=== PATIENT | male | born 1975 | race Caucasian/White ===

== ENCOUNTER 2019-12-12 14:06 | Emergency (ER) | payer SELFPAY ==
[2019-12-12] VITALS (7 sets, daily range): BP systolic 128–135; BP diastolic 74–86; PULSE 52–74; RESP 16–18; TEMP 35.6; O2SAT 92–98; BMI 32.1
--- NOTE | 2019-12-12 14:20 | ED_ITS ---
Documented by User: Tono Pattersno DO 12/12/19 16:14 HPI - Burn/Smoke Inhalation General: Chief complaint: Burn/Smoke Inhalation Stated complaint: electric burn Time Seen by Provider: 12/12/19 14:11 History of Present Illness: HPI Narrative: 44-year-old male was working on a boat putting a battery and had evidently contact and completed the circuit on his ring on his left fourth finger. The ring became extremely hot even had a red hot appearance to it he broke contact and remove the ring he is some sloughing of skin and blister formation underlying. He denies any other injuries he has some whitish cereal on the right nostril that is fiberglass dust he been standing his boat. He has no nostril hair singeing. MD Complaint: burn Onset (ago): minute(s) Type of Exposure: electrical Smoke Inhalation: none Place: home Location - Extremities: Left: hand Associated symptoms: Deny chest pain, fever(s), nausea or vomiting Review of Systems Const: Denies: fever(s), chills, body aches, fatigue, malaise or night sweats Eyes: Denies: change in vision or blurry vision ENMT: Denies: throat pain, oral sores, dental pain, nasal discharge or nasal congestion Card: Denies: chest pain, palpitations, irregular heart rhythm, edema, syncope, dyspnea on exertion, orthopnea or leg pain with exertion Resp: Denies: dyspnea, productive cough, non-productive cough or wheezing GI: Denies: abdominal pain, nausea, vomiting, hematemesis, coffee ground emesis, dysphagia, heartburn, diarrhea, constipation, GI cramping, hematochezia or melena : Denies: flank pain, difficulty urinating, dysuria, urinary frequency, urinary urgency, urinary incontinence or hematuria Physical Exam Const: COMMON NORMALS: no acute distress GENERAL APPEARANCE: cooperative and comfortable ORIENTATION/CONSCIOUSNESS: Yes awake, Yes oriented to person, Yes oriented to place and Yes oriented to time HENMT: COMMON NORMALS: normocephalic, atraumatic and hearing grossly normal bilaterally HEAD & SCALP: normocephalic and atraumatic Eye: COMMON NORMALS: Equal, round and reactive pupils present, EOMs intact bilaterally, conjunctivae normal and no scleral icterus CONJUNCTIVA: Yes conjunctivae normal PUPIL: Yes Equal, round and reactive pupils present Neck/C-Spine: COMMON NORMALS: no JVD Resp: COMMON NORMALS: normal respiratory effort, No retractions, No use of accessory muscles and clear to auscultation bilaterally AUSCULTATION: clear to auscultation bilaterally Cardio: COMMON NORMALS: no JVD, regular rate, regular rhythm and No murmurs present (Cardio) RATE: regular rate RHYTHM: regular rhythm Extremity: COMMON NORMALS: normal to inspection, capillary refill normal, no clubbing, cyanosis or edema, no calf tenderness and no pedal edema Neuro: SENSORIUM/ORIENTATION: Yes oriented to person, Yes oriented to place and Yes oriented to time Skin: NARRATIVE SKIN EXAM: Second-degree burn circumferential on the left fourth finger consistent with C pattern of the ring. There is some sloughing of blisters no full blisters at this point is not full-thickness. Course Vital Signs: Vital signs: Vital Signs Temperature 96.0 F L 12/12/19 14:08 Pulse Rate 58 L 12/12/19 15:50 Respiratory Rate 18 12/12/19 15:50 Blood Pressure 128/74 12/12/19 15:50 Pulse Oximetry 94 12/12/19 15:50 MDM - Burn/Smoke Inhalation MDM Narrative: Medical decision making narrative: Charge home with pain medication topical mupirocin to follow-up with the wound clinic tomorrow as any problems return. Keep the hand elevated while off work until released. Discharge Plan Discharge Patient Disposition: Home Clinical Impression: Electrical burn, Second degree burn of finger of left hand Condition: Stable Prescriptions: New hydrocodone-acetaminophen 5-325 mg tablet 1 tab PO Q6H PRN (Reason: pain) Qty: 20 RF: 0 mupirocin 2 % ointment 1 applic TOPICAL BID Qty: 22 RF: 0 No Action glipizide 5 mg tablet extended release 24hr 5 mg PO BID RF: 0 amlodipine 5 mg tablet 5 mg PO DAILY RF: 0 metformin 1,000 mg tablet 1,000 mg PO BID RF: 0 losartan 25 mg tablet 25 mg PO DAILY RF: 0 gabapentin 300 mg capsule See Rx Instructions .ROUTE .COMPLEX RF: 0 pravastatin 20 mg tablet 20 mg PO DAILY RF: 0 sertraline 50 mg tablet 50 mg PO BID RF: 0 Discharge Orders: Discharge Order (Routine); Ordered 12/12/19 Ordered By: Tono Patterson Referrals: Adelaida Elizabeth, CARISSA [Primary Care Provider] - Discharge Diet: Usual diet Discharge Activity: Limit activity as instructed Activity Restrictions/Additional Instructions: Limit use of the left hand. Keep left hand elevated whenever possible. Change dressing twice a day and apply topical ointment. national facilities manager will call to make an arrangement for you to follow-up with wound care. Discharge Date/Time: 12/12/19 15:55 Coding Level of Care Code ED Finisher Machine for Chg Fwd Exam Detailed Documented by User: MARIA ELENA [place] 12/12/19 17:13 HPI - Burn/Smoke Inhalation General: Chief complaint: Burn/Smoke Inhalation Stated complaint: electric burn Time Seen by Provider: 12/12/19 14:11 Course Vital Signs: Vital signs: Vital Signs Temperature 96.0 F L 12/12/19 14:08 Pulse Rate 58 L 12/12/19 15:50 Respiratory Rate 18 12/12/19 15:50 Blood Pressure 128/74 12/12/19 15:50 Pulse Oximetry 94 12/12/19 15:50 Discharge Plan Discharge Patient Disposition: Home Clinical Impression: Electrical burn, Second degree burn of finger of left hand Condition: Stable Prescriptions: New hydrocodone-acetaminophen 5-325 mg tablet 1 tab PO Q6H PRN (Reason: pain) Qty: 20 RF: 0 mupirocin 2 % ointment 1 applic TOPICAL BID Qty: 22 RF: 0 No Action glipizide 5 mg tablet extended release 24hr 5 mg PO BID RF: 0 amlodipine 5 mg tablet 5 mg PO DAILY RF: 0 metformin 1,000 mg tablet 1,000 mg PO BID RF: 0 losartan 25 mg tablet 25 mg PO DAILY RF: 0 gabapentin 300 mg capsule See Rx Instructions .ROUTE .COMPLEX RF: 0 pravastatin 20 mg tablet 20 mg PO DAILY RF: 0 sertraline 50 mg tablet 50 mg PO BID RF: 0 Discharge Orders: Discharge Order (Routine); Ordered 12/12/19 Ordered By: Tono Patterson Referrals: Adelaida Elizabeth, CARISSA [Primary Care Provider] - Discharge Diet: Usual diet Discharge Activity: Limit activity as instructed Activity Restrictions/Additional Instructions: Limit use of the left hand. Keep left hand elevated whenever possible. Change dressing twice a day and apply topical ointment. national facilities manager will call to make an arrangement for you to follow-up with wound care. Discharge Date/Time: 12/12/19 15:55 Coding Level of Care Code ED Finisher Machine for Chg Fwd Exam Detailed
[2019-12-12] MEDS: HYDROmorphone 1 mg/mL INJ 1 mL 0.5 MG IVP ×2 (14:24→15:14)
[2019-12-12] MEDS: ondansetron 2 mg/ML SDV 2 mL 4 MG IVP (14:24)
[2019-12-12] MEDS: mupirocin oint 22 gm 1 APPLIC TOPICAL (15:50)
--- NOTE | 2019-12-13 10:39 | DCPLANNER ---
manager presentation had message to schedule a follow up appointment for patient with Wound Care. manager presentation called Wound Care, spoke with Xochitl, a follow up appointment was scheduled for Friday, December 15, 2019 at 8:00 with Daniela. manager presentation called patient and left a voicemail for patient regarding the appointment information.
--- NOTE | 2019-12-14 13:24 | DCPLANNER ---
Patient called case management specialist and left a message for case management specialist that he followed up with his primary care physician, and does not want the follow up appointment at Wound Care. manager mac called Wound Care and cancelled the appointment.
--- NOTE | 2020-01-26 11:47 | DCPLANNER ---
Patient had an appointment scheduled for 12.15.19 with Wound Care - patient did not want appointment.
== END 2019-12-12 15:55 | disposition home or self-care (01) ==
PROVIDERS: Emergency Provider Family Medicine; PCP Nurse Practitioner Family
DX: T23.222A Burn of second degree of single left finger (nail) except thumb, initial encounter (principal); W86.8XXA Exposure to other electric current, initial encounter; Z79.84 Long term (current) use of oral hypoglycemic drugs
CPT/HCPCS: 12345; 96374; 96375; 96376; 99282; 99284; J1170; J2405

== ENCOUNTER → 2020-07-31 13:14 | Outpatient (BNVA) | payer BC, SELFPAY | PROVIDERS: PCP Nurse Practitioner Family; Visit Provider Podiatrist Foot & Ankle Surgery | DX: M19.072 Primary osteoarthritis, left ankle and foot (principal); M19.071 Primary osteoarthritis, right ankle and foot; M79.671 Pain in right foot; M79.672 Pain in left foot | CPT/HCPCS: 73630 ==

== ENCOUNTER → 2020-11-10 10:35 | Outpatient (BNVA) | payer BC, SELFPAY | PROVIDERS: PCP Nurse Practitioner Family; Visit Provider Emergency Medicine | DX: Z20.822 Contact with and (suspected) exposure to COVID-19 (principal) | CPT/HCPCS: 87635 ==

== ENCOUNTER → 2021-05-10 08:50 | Outpatient (BNVA) | payer BC, SELFPAY | PROVIDERS: PCP Nurse Practitioner Family; Visit Provider Nurse Practitioner Family | DX: Z20.822 Contact with and (suspected) exposure to COVID-19 (principal) | CPT/HCPCS: 87635 ==

== ENCOUNTER → 2022-11-18 11:48 | Outpatient (BNVA) | payer OTHER, SELFPAY | PROVIDERS: Visit Provider Podiatrist Foot & Ankle Surgery | DX: M21.41 Flat foot [pes planus] (acquired), right foot (principal); M21.42 Flat foot [pes planus] (acquired), left foot; M76.821 Posterior tibial tendinitis, right leg; M76.822 Posterior tibial tendinitis, left leg | CPT/HCPCS: 73630 ==

== ENCOUNTER → 2023-05-20 15:29 | Outpatient (BNVA) | payer BC, SELFPAY | PROVIDERS: PCP Internal Medicine Cardiovascular Disease; Visit Provider Podiatrist Foot & Ankle Surgery | DX: M79.671 Pain in right foot (principal); G89.29 Other chronic pain; M76.821 Posterior tibial tendinitis, right leg; M76.822 Posterior tibial tendinitis, left leg; M21.41 Flat foot [pes planus] (acquired), right foot; M21.42 Flat foot [pes planus] (acquired), left foot | CPT/HCPCS: 73630 ==

== ENCOUNTER 2023-05-23 08:25 | Day surgery (SDC) | payer BC, OTHER, SELFPAY ==
--- OUTSIDE RECORDS SUMMARY | 2023-05-20 16:27 | XMS_ITS | Patient Health Record ---
Author Name Unknown Organization [facility] Address [address] [place] [address] Care Team Providers Care Tin Recovery Worker Name Role Phone MOLLY WHEELER Primary Care Provider Unavaila Molly Phan Unavailable [phone] Rohan Monroe Unavailable ALLERGIES Allergen (clinical drug ingredient) Drug/Non Drug Allergy documented on EMR Reaction Allergy Type Onset Date Status morphine Morphine Sulfate Unknown Drug Allergy Active RESULTS Component Value Reference Range Notes CBC w\ Auto Diff [id number] Reviewed date:12/04/2022 01:50:12 PM Interpretation: Performing Lab: Notes/Report: Diagnosis Description: Type 2 diabetes mellitus without complications WBC 5.8 4.5-11.0 X10'3 RBC 5.04 4.50-5.90 X10'6 Hgb 15.0 13.5-17.5 G/DL Hct 45.7 41.0-53.0 % MCV 90.7 80.0-100.0 FL MCH 29.8 27.0-31.0 PG MCHC 32.8 31.0-37.0 G/DL Platelet 184 150-400 X10'3 RDW-SD 43.2 35.0-49.0 FL RDW-CV 12.9 12.2-15.6 % MPV 12.1 9.2-12.0 FL Neutro Auto% 53.3 42.0-75.0 % Lymph Auto% 36.6 21.0-51.0 % [place] Auto% 7.2 1.7-9.3 % Eos Auto% 1.5 .0-6.0 Baso Auto% 0.7 0.0-1.0 Imm Gran% .7 .0-.4 % Neutro Abs 3.11 .80-7.70 Absolute Neutrophil Count 3110 Lymph Abs 2.14 .10-4.10 [place] Abs .42 .20-1.00 Eos Abs .09 .00-.40 Baso Abs .04 .00-.10 Imm Gran Abs .04 .00-.10 NRBC# .00 .00-.20 NRBC% .00 .00-.20 /100 int act WBC's Comprehensive Metabolic Pane l [id number] Reviewed date:12/04/2022 01:50:06 PM Interpretation: Performing Lab: Notes/Report: Diagnosis Description: Type 2 diabetes mellitus without complications Glucose Serum 70 71-110 MG/DL Testing perfor med at [facility], [address] [place] [address] [place] [address]. CLIA ID#: [id number] BUN 19 7-21 MG/DL Creat .86 .57-1.17 MG/DL E-tpdnot-q-benzoquinone imine (NAPQI) is a metabolite of acetaminophen, NAPQI concentrations of apparoximately 10 mg/L correlation to toxic levels of acetaminophen demonstrates a greater than or equil to 10% change in results. NAPQI concentrations greater than this may lead to falsely depressed results for patient samples. Use of this assay is not recommended for patients undergoing treatment with phenindione, due to the potential for falsely depressed results. GFR 105.7 Calculation per formed from GFR calculator provided by the [employer]. Glomerular Filtration rate(GRF) is the best overall index of kidney function. Normal GFR varies according to age,sex, body size, and declines with age. The National [employer] recommends using the CKD-EPI Creatinine Equation(2009) to estimate GFR. BUN/Creat Ratio 22.1 12.0-20.0 % Total Protein 6.8 5.8-8.0 G/DL Albumin 4.5 3.2-4.8 G/DL Globulin 2.3 2.3-3.5 G/DL Alb/Glob 2.0 0.8-2.2 Calcium 9.3 8.7-10.4 MG/DL Sodium 143 136-145 MMOL/L Potassium 4.2 3.5-5.1 MMOL/L Chloride 107 98-107 MMOL/L CO2 27.1 20.0-31.0 MMOL/L Anion Gap 13 5-15 Alk Phos 38 46-116 Bili Total .4 .3-1.2 MG/DL Use of this ass ay is not recommended for patients undergoing treatment with eltrombopag due to the potential for falsely elevated results. AST/SGOT 17 15-37 UNIT/L ALT/SGPT 18 12-78 UNIT/L Osmo Serum,Calculated 297 280-300 MOSM/KG Hemoglobin A1c 29498 Reviewed date:11/28/2022 10:35:29 AM Interpretation: Performing Lab: Notes/Report: Diagnosis Description: Type 2 diabetes mellitus without complications Hgb A1c 5.5 3.8-6.4 % Interpretation Of Hgb A1c: 4.5-6.2 % nondiabetics. >7.0 % diabetics. EAG 111 Estimated [place] Glucose(EAG). Thyroid Stimulating Hormone (TSH) 59708 Reviewed date:12/04/2022 01:50:17 PM Interpretation: Performing Lab: Notes/Report: Diagnosis Description: Type 2 diabetes mellitus without complications TSH 1.384 .358-3.740 MlU/ML REASON FOR REFERRAL No Information MEDICATIONS Medication SIG (Take, Route, Frequency, Duration) Notes Start Date End Date Status Trulicity 0.75 MG/0.5ML inject Subcutaneous once weekly for 30 days DX: E11.9 NIDDM 12/23/2022 Active amLODIPine Besylate 5 MG TAKE 1 TABLET BY MOUTH IN THE EVENING FOR BLOOD PRESSURE for 90 Unknown Gabapentin 300 MG TAKE 1 CAPSULE BY MOUTH IN THE MORNING , 1 capsule at 1600 AND 2 CAPSULES BY MOUTH IN THE EVENING Orally Once a day for 90 days Active Pravastatin Sodium 20 MG TAKE 1 TABLET BY MOUTH AT BEDTIME Orally Once a day for 90 days Unknown Meloxicam 15 MG 1 tablet Orally Once a day for 90 days Unknown Ozempic (0.25 or 0.5 MG/DOSE) 2 MG/3ML 0.5 Subcutaneous Weekly for 30 days Unknown Losartan Potassium 25 MG TAKE 1 TABLET BY MOUTH TWICE DAILY for 90 Unknown metFORMIN HCl 1000 MG TAKE 1 TABLET BY MOUTH TWO TIMES DAILY Orally twice a day for 90 days Active Mounjaro 5 MG/0.5ML 0.5mg Subcutaneous inject once weekly for 30 days 07/01/2023 Unknown Sertraline HCl 50 MG 2 tablets Orally On ce a day for 90 days Unknown IMMUNIZATIONS Vaccine Route Administration Date Status Comme nts COVID-19 Vaccine (Moderna) Dose #1 Unknown 05/24/2020 A dministered COVID-19 Vaccine (Moderna) Dose #2 Unknown 06/29/2020 A dministered Td (adult), absorbed Unknown 04/28/2013 Administered SOCIAL HISTORY Tobacco Use: Social History Observation Description Date Details (start date - stop date) Never Smoker NA - NA Sex Assigned At : Social History Observation Description Sex Assigned At Unknown Household Question Answer Notes Marital status: Tobacco Use/Smoking Question Answer Notes Are you a nonsmoker Tobacco use other than smoking: Question Answer Notes Are you an other tobacco user? Yes c hews PHQ-9 Question Answer Notes Little interest or pleasure in doing things Not at all Feeling down, depressed, or hopeless Not at all Trouble falling or staying asleep, or sleeping t oo much Not at all Feeling tired or having little energy Not at all Poor appetite or overeating Not at all Feeling bad about yourself, or that you are a failure, or have let yourself or your family down Not at all Trouble concentrating on thi ngs, such as reading the newspaper or watching television Not at all Moving or speaking so slowly that other people could have noticed. Or the opposite ? being so fidgety or restless that you have been moving around a lot more than usual Not at all Thoughts that you would be b negra off , or of hurting yourself in some way Not at all Total Score 0 PROBLEMS Problem Type ICD Code Onset Dates Problem Status W/U Status Risk SNOMED Code Notes Problem Essential hypertension (I10) Active confirmed 40420355 Problem Type 2 diabetes mellitus without complication, without long-term current use of insulin (E11.9) Active confirmed 252087818 Problem Hypercholesteremia (E78.00) Active confirmed Pure hypercholesterolemia (639011316) Problem Current mild episode of major depressive disorder without prior episode (F32.0) 2018 Active confirmed 41087558 Problem Osteoarthritis (M19.90) Active confirmed Osteoarthritis (286091280) Problem Acquired polyneuropathy (G62.9) 2018 Active confirmed 43097926 Problem Type 2 diabetes mellitus with autonomic neuropathy, unspecified whether custodial insulin use (E11.43) Active confirmed Diabetic autono augusto neuropathy due to type 2 diabetes mellitus (708984423) VITAL SIGNS Heart Rate 70 /min 11/26/2022 Oximetry 99 % 11/26/2022 Blood pressure diastolic 82 mm Hg 11/26/2022 Weight-kg 97.07 kg 11/26/2022 Height 72 in 11/26/2022 Blood pressure systolic 124 mm Hg 11/26/2022 Weight 214 lbs 11/26/2022 BMI 29.02 kg/m2 11/26/2022 Encounters Encounter Location Date Provider Diagnosis [facility] [address] [place] [phone] 07/04/2022 Rohan Monroe Type 2 diabetes mellitus with autonomic neuropathy, unspecified whether custodial insulin use E11.43 [facility] [address] [place] [phone] 09/13/2022 Rohan Monroe Type 2 diabetes mellitus with autonomic neuropathy, unspecified whether terminal computer operator insulin use E11.43 [facility] [address] [place] [phone] 11/04/2022 Rohan Monroe Essential hypertension I10 and Hypercholesteremia E78.00 [facility] [address] [place] [phone] 11/18/2022 Rohan Monroe Current mild episode of major depressive disorder without prior episode F32.0 [facility] [address] [place] [phone] 11/26/2022 Rohan Monroe Type 2 diabetes mellitus without complication, without long-term current use of insulin E11.9 ; Essential hypertension I10 ; Type 2 diabetes mellitus with autonomic neuropathy, unspecified whether terminal computer operator insulin use E11.43 ; Osteoarthritis M19.90 and Annual physical exam Z00.00 [facility] [address] [place] [phone] 12/03/2022 Rohan Monroe Type 2 diabetes mellitus with autonomic neuropathy, unspecified whether custodial insulin use E11.43 [facility] [address] [place] [phone] 12/23/2022 Rohan Monroe [facility] [address] [place] [phone] 03/13/2023 Rohan Monroe [facility] [address] [place] [address] [place] [phone] 04/01/2023 Rohan Monroe Type 2 diabetes mellitus with autonomic neuropathy, unspecified whether custodial insulin use E11.43 [facility] [address] [place] [address] 05/20/2023 Rohan Monroe Acquired polyneuropathy G62.9 ASSESSMENTS Encounter Date Diagnosis Assessment Notes Treatment Notes Treatment Clinical Notes 07/04/2022 Type 2 diabetes jayy itus with autonomic neuropathy, unspecified whether terminal computer operator insulin use (ICD-10 - E11.43) 09/13/2022 Type 2 diabetes jayy itus with autonomic neuropathy, unspecified whether custodial insulin use (ICD-10 - E11.43) 11/04/2022 Essential hypertensi on (ICD-10 - I10) 11/18/2022 Current mild episode of major depressive disorder without prior episode (ICD-10 - F32.0) 11/26/2022 Essential hypertensi on (ICD-10 - I10) 11/26/2022 Type 2 diabetes jayy itus without complication, without long-term current use of insulin (ICD-10 - E11.9) will try to get mounjaro through [place] if not approved will continue on Ozempic 12/03/2022 Type 2 diabetes jayy itus with autonomic neuropathy, unspecified whether custodial insulin use (ICD-10 - E11.43) 04/01/2023 Type 2 diabetes jayy itus with autonomic neuropathy, unspecified whether custodial insulin use (ICD-10 - E11.43) 05/20/2023 Acquired polyneuropa thy (ICD-10 - G62.9) 11/04/2022 Hypercholesteremia (ICD-10 - E78.00) 11/26/2022 Type 2 diabetes jayy itus with autonomic neuropathy, unspecified whether terminal computer operator insulin use (ICD-10 - E11.43) 11/26/2022 Osteoarthritis (ICD- 10 - M19.90) 11/26/2022 Annual physical exam (ICD-10 - Z00.00) will continue to monitor patients chronic conditions. Will do another annual exam in 1 year. 11/26/2022 Other Venipuncture performed by Leena Jensen. Left arm/hand. One attempt. Pt tolerated well, bleeding controlled with light dressing. Lab sent to [facility] via senior linux systems engineer. PLAN OF TREATMENT No Information Insurance Providers Payer Name Payer Address Payer Phone Subscriber Number Group Number Insured Name Patient Relationship to Insured Coverage Start Date Coverage End Date [facility] [address] [place] [address] [phone] [id number] Mil Booth Self - patient is the insured MEDICAL (GENERAL) HISTORY Medical History History ICD Code Allergies Diabetes mellitus type 2, noninsulin dep endent E11.9 Essential hypertension I10 Hypercholesterolemia E78.00 Depression F32.9 Peripheral neuropathy G62.9 Surgical History Surgery Date(Month/Year) Hernia Repair: at age age 16;
[2023-05-23] VITALS (18 sets, daily range): BP systolic 114–151; BP diastolic 75–94; PULSE 56–81; RESP 11–21; TEMP 36.1–36.2; O2SAT 90–98; BMI 33.0
--- NOTE | 2023-05-23 | XR_ITS ---
WS: [id number] XR foot RT 2V [id number] REASON FOR EXAM: Gastocnemius recession, or pic FINDINGS: Plate and screw and long screw arthrodesis/osteotomy of the first tarsal metatarsal joint. Small fixation screw in the navicular tarsal. Surgical appliances appear in proper position and alignment. Arthrodesis in appropriate alignment. IMPRESSION: Osteotomy arthrodesis of the first tarsal metatarsal joint.
--- OUTSIDE RECORDS SUMMARY | 2023-05-23 08:28 | XMS_ITS | Patient Health Record ---
Author Name Unknown Organization [facility] Address [address] [place] [address] Care Team Providers Care Soc Analyst Name Role Phone MOLLY WHEELER Primary Care Provider Unavaila Molly Phan Unavailable [phone] Rohan Monroe Unavailable ALLERGIES Allergen (clinical drug ingredient) Drug/Non Drug Allergy documented on EMR Reaction Allergy Type Onset Date Status morphine Morphine Sulfate Unknown Drug Allergy Active RESULTS Component Value Reference Range Notes CBC w\ Auto Diff [id number] Reviewed date:12/04/2022 01:50:12 PM Interpretation: Performing Lab: [...] 42.0-75.0 % Lymph Auto% 36.6 21.0-51.0 % [place] Auto% 7.2 1.7-9.3 % Eos Auto% 1.5 .0-6.0 Baso Auto% 0.7 0.0-1.0 Imm Gran% .7 .0-.4 % Neutro Abs 3.11 .80-7.70 Absolute Neutrophil Count 3110 Lymph Abs 2.14 .10-4.10 Flathead Abs .42 .20-1.00 Eos Abs .09 .00-.40 Baso Abs .04 .00-.10 Imm Gran Abs .04 .00-.10 NRBC# .00 .00-.20 NRBC% .00 .00-.20 /100 int act WBC's Comprehensive Metabolic Pane l [id number] Reviewed date:12/04/2022 01:50:06 PM Interpretation: Performing Lab: Notes/Report: Diagnosis Description: Type 2 diabetes mellitus without complications Glucose Serum 70 71-110 MG/DL Testing perfor med at [facility], [address] [place] [address] [place] [address]. CLIA ID#: [id number] BUN 19 7-21 MG/DL Creat .86 .57-1.17 MG/DL J-rnbmmi-t-benzoquinone imine (NAPQI) is a metabolite of acetaminophen, [...] Osmo Serum,Calculated 297 280-300 MOSM/KG Hemoglobin A1c 06580 Reviewed date:11/28/2022 10:35:29 AM Interpretation: Performing Lab: Notes/Report: Diagnosis Description: Type 2 diabetes mellitus without complications Hgb A1c 5.5 3.8-6.4 % Interpretation Of Hgb A1c: 4.5-6.2 % nondiabetics. >7.0 % diabetics. EAG 111 Estimated [place] ge Glucose(EAG). Thyroid Stimulating Hormone (TSH) 71391 Reviewed date:12/04/2022 01:50:17 PM Interpretation: Performing Lab: [...] Notes Problem Essential hypertension (I10) Active confirmed 49644341 Problem Type 2 diabetes mellitus without complication, without long-term current use of insulin (E11.9) Active confirmed 584198464 Problem Hypercholesteremia (E78.00) Active confirmed Pure hypercholesterolemia (263166518) Problem Current mild episode of major depressive disorder without prior episode (F32.0) 2018 Active confirmed 85498291 Problem Osteoarthritis (M19.90) Active confirmed Osteoarthritis (971141654) Problem Acquired polyneuropathy (G62.9) 2018 Active confirmed 47037110 Problem Type 2 diabetes mellitus with autonomic neuropathy, unspecified whether fpc insulin use (E11.43) Active confirmed Diabetic autono augusto neuropathy due to type 2 diabetes mellitus (124035837) VITAL SIGNS Heart Rate 70 /min 11/26/2022 Oximetry 99 % 11/26/2022 Blood pressure diastolic 82 mm Hg 11/26/2022 Weight-kg 97.07 kg 11/26/2022 Height 72 in 11/26/2022 Blood pressure systolic 124 mm Hg 11/26/2022 Weight 214 lbs 11/26/2022 BMI 29.02 kg/m2 11/26/2022 Encounters Encounter Location Date Provider Diagnosis [facility] [address] [place] [phone] 07/04/2022 Rohan Monroe Type 2 diabetes mellitus with autonomic neuropathy, unspecified whether fpc insulin use E11.43 [facility] [address] [place] [phone] 09/13/2022 Rohan Monroe Type 2 diabetes mellitus with autonomic neuropathy, unspecified whether tank terminal gauger insulin use E11.43 [facility] [address] [place] [phone] 11/04/2022 Rohan Monroe Essential hypertension I10 and Hypercholesteremia E78.00 [facility] [address] [place] [phone] 11/18/2022 Rohan Monroe Current mild episode of major depressive disorder without prior episode F32.0 [facility] [address] [place] [phone] 11/26/2022 Rohan Monroe Type 2 diabetes mellitus without complication, without long-term current use of insulin E11.9 ; Essential hypertension I10 ; Type 2 diabetes mellitus with autonomic neuropathy, unspecified whether tank terminal gauger insulin use E11.43 ; Osteoarthritis M19.90 and Annual physical exam Z00.00 [facility] [address] [place] [phone] 12/03/2022 Rohan Monroe Type 2 diabetes mellitus with autonomic neuropathy, unspecified whether fpc insulin use E11.43 [facility] [address] [place] [phone] 12/23/2022 Rohan Monroe [facility] [address] [place] [phone] 03/13/2023 Rohan Monroe [facility] [address] [place] [address] [place] [address] 04/01/2023 Rohan Monroe Type 2 diabetes mellitus with autonomic neuropathy, unspecified whether fpc insulin use E11.43 [facility] [address] [place] [address] 05/20/2023 Rohan Monroe Acquired polyneuropathy G62.9 ASSESSMENTS Encounter Date Diagnosis Assessment Notes Treatment Notes Treatment Clinical Notes 07/04/2022 Type 2 diabetes jayy itus with autonomic neuropathy, unspecified whether tank terminal gauger insulin use (ICD-10 - E11.43) 09/13/2022 Type 2 diabetes jayy itus with autonomic neuropathy, unspecified whether fpc insulin use (ICD-10 - E11.43) 11/04/2022 Essential [...] jayy itus with autonomic neuropathy, unspecified whether fpc insulin use (ICD-10 - E11.43) 04/01/2023 Type 2 diabetes jayy itus with autonomic neuropathy, unspecified whether fpc insulin use (ICD-10 - E11.43) 05/20/2023 Acquired polyneuropa thy (ICD-10 - G62.9) 11/04/2022 Hypercholesteremia (ICD-10 - E78.00) 11/26/2022 Type 2 diabetes jayy itus with autonomic neuropathy, unspecified whether tank terminal gauger insulin use (ICD-10 - E11.43) 11/26/2022 Osteoarthritis (ICD- 10 - M19.90) 11/26/2022 Annual physical exam (ICD-10 - Z00.00) will continue to monitor patients chronic conditions. Will do another annual exam in 1 year. 11/26/2022 Other Venipuncture performed by Leena Jensen. Left arm/hand. One attempt. Pt tolerated well, bleeding controlled with light dressing. Lab sent to [facility] via recording studio intern. PLAN OF TREATMENT No Information Insurance Providers Payer Name Payer Address Payer Phone Subscriber Number Group Number Insured Name Patient Relationship to Insured Coverage Start Date Coverage End Date [facility] [address] [place] [address] [phone] [id number] Mil Booth Self - patient is the insured MEDICAL (GENERAL) HISTORY Medical History History ICD Code Allergies Diabetes mellitus type 2, noninsulin dep endent E11.9 Essential hypertension I10 Hypercholesterolemia E78.00 Depression F32.9 Peripheral neuropathy G62.9 Surgical History Surgery Date(Month/Year) Hernia Repair: at age age 16;
[2023-05-23 09:19] LABS: Glucose Point of Care 116 mg/dL (70-110)
--- NOTE | 2023-05-23 09:26 | ECG_ITS ---
[facility] Test Date: 2023-05-23 Pat Name: Mil Booth Department: Room: Gender: Male Gas Maker: : 1975 Requested By: Kam Mantilla Order Number: [id number] T[place] MD: Mukesh Brush M.D. Measurements Intervals [place] Rate: 61 P: 15 MO: 189 QRS: 4 QRSD: 101 T: 15 QT: 401 QTc: 406 Interpretive Statements SINUS RHYTHM No previous ECG available for comparison Electronically Signed On 05-23-2023 11:29:09 DRUG ENFORCEMENT AGENT by Mukesh Brush M.D. [id number]
[2023-05-23] MEDS: HYDROmorphone 1 mg/mL INJ 1 mL 0.5 MG IVP (09:37)
[2023-05-23] MEDS: sodium chloride 0.9% 1,000 ML 30 ML IV (09:38)
--- NOTE | 2023-05-23 09:50 | P.ANESASSM_ITS ---
Pre-Anesthetic Assessment Height/Weight: Height 1.8 m Weight 107.501 kg Temp Pulse Resp BP Pulse Ox O2 Del Method 97.0 F L 61 18 139/92 98 Room Air 05/23/23 08:47 05/23/23 08:47 05/23/23 09:37 05/23/23 08:47 05/23/23 08:47 05/23/23 08:47 Preop Diagnosis: Adult acquired flatfoot, right. Operation Date: 05/23/23 10:00 Proposed Procedures p Gastrocnemius Recession(Right) - Petar Goins DPM s right medial Calcaneal slide Osteotomy(Right) - LORELEI Tyler Right Subtalar Joint Fusion/Right Talonavicular fusion(Right) - LORELEI Tyler Bunionectomy Lapidus(Right) - Petar Goins DPM Familial anesthetic complications: none Was Beta Lawanda taken within 24 hours: N/A Was Clonidine taken within 24 hours: N/A Last intake: Intake Last Liquid Date 05/22/23 Last Liquid Time 21:30 Last Solid Date 05/22/23 Last Solid Time 21:30 Social No alcohol and No tobacco Exam alert, oriented x 3, clear to auscultation bilaterally and regular rate & rhythm Airway Submandibular: within normal limits Cervical ROM: within normal limits Mallampati: Class II Dentition: full CV/HEM Hypertension Metabolic Diabetes Mellitus, Hyperlipidemia and Morbid Obesity Musc/skel Osteoarthritis/DJD Anesthetic Plan ASA status: 3 Anesthesia: General and Regional (specify below) (right pop blk) Medications/Allergies Home Medications Medication Instructions Recorded Confirmed Last Taken Type amlodipine 5 mg tablet 5 mg PO DAILY 12/12/19 05/22/23 05/21/23 History gabapentin 300 mg capsule See Rx Instructions .Route .COMPLEX 12/12/19 05/22/23 05/22/23 History losartan 25 mg tablet 25 mg PO DAILY 12/12/19 05/22/23 05/21/23 History metformin 1,000 mg tablet 1,000 mg PO BID 12/12/19 05/22/23 05/21/23 History pravastatin 20 mg tablet 20 mg PO DAILY 12/12/19 05/22/23 05/22/23 History sertraline 50 mg tablet 50 mg PO BID 12/12/19 05/22/23 05/22/23 History Articulating AFO's #1 ea 07/31/20 05/20/23 Unknown Rx dulaglutide 0.75 mg/0.5 mL mg SUBCUT 05/20/23 05/20/23 05/19/23 History subcutaneous pen injector (Trulicity) meloxicam 15 mg tablet 15 mg PO QPM 05/20/23 05/22/23 05/21/23 History Allergies Allergy/AdvReac Type Severity Reaction Status Date / Time morphine Allergy Severe ALGY-Anaphy Verified 05/20/23 16:09 laxis Current Medications Generic Name Dose Route Start Last Admin Trade Name Freq PRN Reason Stop Dose Admin Hydromorphone HCl 0.5 mg 05/23/23 08:31 05/23/23 09:37 Hydromorphone 1 Mg/Ml Inj 1 Ml IVP 0.5 mg ONCE PRN Administration For preop pain/anxiety Sodium Chloride 1,000 mls @ 30 mls/hr 05/23/23 08:45 05/23/23 09:38 Sodium Chloride 0.9% IV 05/24/23 08:44 30 mls/hr .Q24H RACHEL Administration PFSH Anesthesia Social History Smoking and tobacco/nicotine status: current every day tobacco/nicotine user smokeless tobacco Data Anesthesia 05/23/23 09:00 Cardiac Studies: 2 No Data to Display
--- NOTE | 2023-05-23 10:24 | W.PM.OPSUD ---
Surgery/Procedure H&P Update DATE OF PROCEDURE: May 28, 2023 DATE H&P PERFORMED: 05/20/23 H&P UPDATE INFORMATION: I have reviewed H&P completed within last 30 days, I have examined patient prior to procedure, No changes to prior documentation and H&P is in [facility] EMR on date indicated CHANGES TO PREVIOUS DOCUMENTATION: None PREOP DIAGNOSIS: Adult acquired flatfoot, right. PLANNED PROCEDURE: Operation Date: 05/23/23 10:00 Proposed Procedures p Gastrocnemius Recession(Right) - Petar Goins DPM s right medial Calcaneal slide Osteotomy(Right) - LORELEI Tyler Right Subtalar Joint Fusion/Right Talonavicular fusion(Right) - LORELEI Tyler Bunionectomy Lapidus(Right) - Petar Goins DPM
[2023-05-23] MEDS: ceFAZolin 2,000 MG in sodium chloride 0.9% (plus) 50 ML 100 MG IV (10:39)
[2023-05-23 10:40] LABS: Blood Urea Nitrogen 18 mg/dL (6-20); Calcium 9.8 mg/dL (8.5-10.5); Carbon Dioxide 25 mmol/L (22-29); Chloride 104 mmol/L (98-107); Glomerular Filtration Rate 102.3 mL/min (90-130); Glucose 112 mg/dL (65-115); Osmolality Calculated 297 mOsm/kg (285-295); Sodium 142 mmol/L (136-145)
[2023-05-23 10:41] LABS: Anion Gap 17.4 (5-19); Potassium 4.4 mmol/L (3.5-5.1)
--- NOTE | 2023-05-23 11:09 | ANES.PROC ---
Anesthesia Procedures Procedure/Date: 05/23/23 Nerve Block ^: Nerve Block 1: Main Anesthesia: general anesthesia Time Out Performed: Yes Consent: requested by attending/covering physician, from patient, risks and benefits reviewed and patient agrees to proceed Nerve block location: popliteal (right) Anesthesia monitors applied: pulse oximetry, EKG, BP cuff and oxygen Nerve block position: supine Anesthetic Used: ropivicaine 0.5% Amount of anesthesia used (mL): 30 Ultrasound used to: recognize landmarks Nerve Stimulator Used?: No Interscalene/Femoral BLK: 4 stimuplex 21 g needle used for position and inplane approach Injection: neg aspiration of heme Patient Tolerated Procedure: well Complications: none
[2023-05-23] MEDS: BUPivacaine 0.5% INJ 10 mL INJECTION (11:15)
--- NOTE | 2023-05-23 12:04 | SUR.OPER ---
[address] GAONA OF [place] TIME 60MIN. DR. GAONA STATED TO EXTEND TO 90MIN.
--- NOTE | 2023-05-23 13:07 | P.OP_ITS ---
Operative Report Date of procedure: May 23, 2023 Pre-op diagnosis: PTTD (posterior tibial tendon dysfunction) M76.829 Bilateral foot pain M79.671; M79.672 Pes planus of both feet M21.41; M21.42 Post-op diagnosis: PTTD (posterior tibial tendon dysfunction) M76.829 Bilateral foot pain M79.671; M79.672 Pes planus of both feet M21.41; M21.42 Post-op findings: Tendinosis right posterior tibial tendon Procedure done: 1) right subtalar joint fusion. CPT 92893 2) right Kidner. CPT 67100 3) right Lapidus bunionectomy. CPT code 12806 Implants: Wilberforce 7 mm headed screw x 2 Wilberforce titanium bone anchor Wilberforce 4.0 mm headed homerun screw Wilberforce primary Lapidus plate with 3.5 millimeter screws Surgeon: Petar Goins DPM Painter Ordnance: MARY Estimated blood loss: 25 200 IV fluids: see intraoperative documentation Urine output: 0 Complications: None Brief History: 48-year-old pleasant male with bilateral PTTD. Right is more symptomatic. Repeat weightbearing x-rays right foot 3 views shows medial uncovering of the talar head, decreased calcaneal inclination, bunion deformity and accessory ossicle at the navicular tuberosity. I reviewed at length with the patient, the risks, potential complications, benefits, alternatives, expectations, and typical outcomes associated with the surgery. The risks and potential complications were explained in detail, including but not limited to infection, wound dehiscence or soft tissue complications, bleeding and hematoma, chronic edema, neuritis or nerve damage producing numbness or chronic pain, CRPS, failure to relieve pain or worsening pain, thick / painful / unsightly scar, limited motion / stiffness, malposition, delayed union, malunion, or nonunion, fracture, reaction to implants, anesthetic complications, venous thromboembolism, and deformity recurrence. I discussed the notion of no regrets with the patient as it pertains to complications and outcomes. The patient seemed to understand the nature of the proposed care and required convalescence. They asked appropriate questions, answered to their satisfaction. They are aware no guarantees can be made as to a satisfactory outcome and they understand there may be other possible unforeseen complications or outcomes not listed here that will be treated accordingly if they arise. There were no written or implied guarantees given to the patient. They gave informed consent to proceed. Procedure: Under mild sedation the patient was brought to the operating room and transferred to the operating room table in supine position. A timeout was performed. Anesthesia was administered by the anesthesia service. Of note a right popliteal block was administered per anesthesia. Well-padded pneumatic tourniquet applied to the right high calf. 5 cc of 0.5 sent Marcaine plain and a right saphenous nerve block was performed by myself. Right lower extremity was then scrubbed, prepped and draped utilizing normal aseptic technique. Right foot and ankle were exanguinated with an Esmarch bandage and the tourniquet inflated to 250 mmHg. Attention was directed to the left sinus tarsi where sinus tarsi incision was performed through skin with a 15 blade and dissection carried down through subcutaneous tissue to the layer of joint capsule of the sinus tarsi at the level of the posterior facet utilizing sharp and blunt technique. Care was taken to retract and preserve neurovascular and tendinous structures. All bleeders were ligated and cauterized as necessary. Peroneal tendons were retracted inferiorly. A capsulotomy is performed of the posterior facet of the right subtalar joint. The subtalar joint was then distracted and all facets of the calcaneus and talus of the subtalar joint were denuded of articular surface, saline flush followed by subchondral drilling was then performed. The subtalar joint was held in neutral and held out of supination that was appreciated preoperatively. Once it was held in neutral position this was fixated for arthrodesis utilizing Wilberforce 28 7.0 mm partially-threaded cannulated screws that were headed with excellent bony apposition and compression noted. Screws were oriented from distal posterior to proximal anterior and did not violate the ankle joint. Utilizing intraoperative fluoroscopy with an AP, oblique and lateral view of the right foot the placement of hardware of the subtalar joint arthrodesis was excellent, also took a right ankle AP and oblique ankle view to confirm that the screws were within the mid body of the talus. Smooth range of motion of the right ankle joint was appreciated intraoperatively. The sinus tarsi incision was irrigated with copious amounts of sterile saline solution. This was then closed in a layered fashion with retinaculum and deep fascia reapproximated with 3-0 Vicryl, subcutaneous tissue reapproximated with 4-0 Vicryl and skin with 4-0 nylon. Attention was then directed to the right midfoot where the navicular tuberosity was palpated. At the level of the medial navicular coursing distally at mid diaphysis of the first metatarsal a curvilinear incision was performed through skin with a #15 blade. Dissection was carried down through subcutaneous tissue down to layer of periosteum within the length of the entire incision utilizing sharp and blunt technique. Care was taken to retract and preserve neurovascular and tendon structures. All bleeders were ligated and cauterized as necessary. Direct visualization of the posterior tibial tendon demonstrated degenerative changes consistent with tendinosis with thickening and partial tearing just proximal and down to the insertion at the navicular tuberosity which was palpate d and noted to be enlarged. The posterior tibial tendon was sharply debrided of devitalized tendon and reflected off of the medial navicular tuberosity which was then transected of its bony overgrowth, accessory ossicle within the posterior tibial tendon was also shelled out sharply and passed from the operative field. After the tendon was debrided and read tubularized it was reinserted medially at the right navicular tuberosity utilizing a Wilberforce titanium bone anchor with excellent bony apposition and excellent pullout strength testing intraoperatively. attention was then directed to the right first metatarsal base and medial cuneiform which were denuded of articular surfaces followed by saline flush and subchondral drilling was then performed. More aggressive joint preparation was performed laterally and plantarly as to reduce intermetatarsal angle and plantarflex the first ray. Once the first ray was reduced and held in appropriate position a 4 point millimeter Wilberforce 28 homerun screw from distal dorsal to proximal plantar was utilized for first point of fixation with excellent bony apposition and compression noted alignment in all 3 planes with AP, oblique and lateral view with intraoperative fluoroscopy followed by additional fixation with a dorsal medial locking plate with 3.5 millimeter screws. AP, oblique and lateral views confirmed excellent placement of hardware without violating adjacent joints. The incision was irrigated with copious amounts of sterile saline solution. Medial incision and posterior heel incision were then closed, posterior heel incision closed with 4-0 nylon. Medial foot incision closed in a layered fashion with deep fascia and periosteum reapproximated with 3-0 Vicryl. Subcutaneous tissue with 4-0 Vicryl, synovial sheath the posterior tibial tendon also closed with 4-0 Vicryl and skin closed with 4-0 nylon. The incisions were then dressed with Adaptic, sterile 4 x 4's, Kerlix and Mandeep wrap followed by application of a cam boot to the right lower extremity. Tourniquet was then deflated and a prompt hyperemic response was noted to the distal digits of the right foot. Patient tolerated the procedure and anesthesia well and was transferred to the PACU with vital signs stable and vascular status intact. Following a period of postoperative monitoring he will be discharged home is to remain strict nonweightbearing to the right lower extremity. He is to elevate his right foot while resting. He was given at home care instructions, scheduled follow-up and my cell phone number to contact with any postoperative questions or concerns.
--- NOTE | 2023-05-23 13:07 | W.PM.BPON ---
Date of Procedure: 05/23/23 Surgeon: Petar Goins DPM Women'S Studies Professor(s): Sanna Procedure(s) performed: Flatfoot reconstruction, right lower extremity. Findings of the procedure(s): None Estimated blood loss: 5 Specimen(s) removed: None Post-operative diagnosis: Adult acquired flatfoot with PTTD, right. Popliteal block to the right lower extremity preoperatively. No complications with anesthesia or the procedure.
[2023-05-23] MEDS: fentaNYL 50 mcg/mL INJ 2mL IVP ×2 (13:31→13:36)
[2023-05-23] MEDS: ketorolac 30 mg/mL INJ IVP (13:39)
--- NOTE | 2023-05-23 13:39 | ANE.PACU2 ---
Inpatient post-anesthesia follow up: Airway intact: Yes Vital signs: Temperature 97 F Pulse Rate 73 Respiratory Rate 21 Blood Pressure 128/89 Pulse Oximetry 93 Oxygen Delivery Me thod Room Air Oxygen Flow Rate Fraction of Inspir ed Oxygen Hydration adequate: Yes Nausea and vomiting: No Pain level: 5 Mental status: Baseline
[2023-05-23 13:56] LABS: Glucose Point of Care 94 mg/dL (70-110)
[2023-05-23] MEDS: HYDROcodone-acetaminophen 7.5-325 mg Tablet 1 TAB PO (14:02)
== END 2023-05-23 14:50 | disposition home or self-care (01) ==
PROVIDERS: Anesthesiology; PCP Internal Medicine Cardiovascular Disease; Visit Provider Podiatrist Foot & Ankle Surgery
PROC: (CPT 27687; principal; 2023-05-23 09:50)
PROC: (CPT 28300; 2023-05-23 09:50)
PROC: (CPT 28725; 2023-05-23 09:50)
PROC: (CPT 28297; 2023-05-23 09:50)
DX: M76.821 Posterior tibial tendinitis, right leg (principal); M79.671 Pain in right foot; M21.41 Flat foot [pes planus] (acquired), right foot; I10 Essential (primary) hypertension; E11.9 Type 2 diabetes mellitus without complications; E78.5 Hyperlipidemia, unspecified; E66.01 Morbid (severe) obesity due to excess calories; Z68.33 Body mass index [BMI] 33.0-33.9, adult; F17.200 Nicotine dependence, unspecified, uncomplicated; Z79.84 Long term (current) use of oral hypoglycemic drugs
CPT/HCPCS: 28238; 28297; 28725; 36415; 36416; 73620; 76000; 80048; 82962; 93005; C1713; J0690; J1170; J1200; J1885; J2250; J2405; J2704; J2795; J3010; J3490; J7030

== ENCOUNTER 2023-05-23 16:34 | Emergency (ER) | payer BC, OTHER, SELFPAY ==
[2023-05-23 16:38] VITALS: BP 121/80; PULSE 88; RESP 16; TEMP 36.4; O2SAT 97
--- NOTE | 2023-05-23 16:40 | XRR_ITS ---
PROCEDURE INFORMATION: Exam: XR Right Foot Exam date and time: 05/23/2023 5:04 PM Age: 48 years old Clinical indication: Pain; Foot; Right TECHNIQUE: Imaging protocol: Radiologic exam of the right foot. Views: 3 or more views. COMPARISON: CR XR foot RT min 3V* [id number] 05/20/2023 3:39 PM FINDINGS: Bones/joints: Interval fusion with a fixation plate with interlocking screws at the right 1st tarsometatarsal joint. Alignment is anatomic. Interval placement of a surgical anchor in the medial navicular bone. Interval fusion of the posterior subtalar joint with 2 fixation screws. The alignment is anatomic. No acute fracture. No dislocation. Normal bone mineralization. No joint effusion. Joint spaces are maintained. Soft tissues: Mild soft tissue swelling and soft tissue emphysema along the medial surface of the right hindfoot. No radiopaque foreign body. XR/XR foot RT min 3V* [id number] IMPRESSION: 1. Interval fusion with a fixation plate with interlocking screws at the right 1st tarsometatarsal joint. Alignment is anatomic. 2. Interval fusion of the posterior subtalar joint with 2 fixation screws. The alignment is anatomic. 3. Mild soft tissue swelling and soft tissue emphysema along the medial surface of the right hindfoot. Findings are likely postsurgical in nature. 4. Interval placement of a surgical anchor in the medial navicular bone.
[2023-05-23 16:55] LABS: Glucose Point of Care 153 mg/dL (70-110)
--- NOTE | 2023-05-23 17:00 | ED_ITS ---
HPI - General Adult 2 General: Chief complaint: General Medical Stated complaint: right foot pain Time Seen by Provider: 05/23/23 16:52 History of Present Illness: 48-year-old male presents to the emergen cy department to have his postoperative wound reevaluated. He had surgery to his right foot approximately [address] Goins. Patient states that he attempted to get up and go to the bathroom and noticed that his foot was bleeding what he felt was an excessive amount patient states that he became lethargic and felt like he was going to pass out and also became nauseated. He states his pain currently is an 8 out of 10. Review of Systems 2 General: Reports: 10 or more systems reviewed and unremarkable except in HPI and below Musc: Reports: extremity pain and extremity swelling PFS ED 2 PFSH: Social History Smoking and tobacco/nicotine status: current every day tobacco/nicotine user smokeless tobacco Physical Exam 2 Narrative: EXAM NARRATIVE: Constitutional: the patient appears well nourished and of normal development. Vital signs as documented. No acute distress at present. Alert and oriented-to person, place, time and situation. Head, eyes, ears, nose, mouth, throat: Normocephalic, atraumatic. Pupils-equal, round, reactive to light. No scleral icterus. Normal-appearing external ears. Normal appearing nasal turbinates, no drainage. No obvious oral lesions, posterior oropharynx without erythema or exudates. Neck: Supple, trachea is midline, no lymphadenopathy, no jugular venous distension, thyromegaly, or carotid bruits. Carotid upstrokes are brisk bilaterally. Lungs: clear to auscultation to all lung [place]. Symmetrical rise and fall of chest, no obvious signs of increased work of breathing at present. Cardiac: Regular rate and rhythm, positive S1, S2. No murmurs, rubs or gallops that I can appreciate Abdomen: Soft, non-tender to palpation, normal active bowel sounds to all quadrants. No palpable masses, no organomegaly and abdominal bruits. Extremities: 2+ pulses in the upper extremities that are equal bilaterally, 2+ pulses in the lower extremities that are equal bilaterally. Non-edematous. Moves all extremities well, sensation to all extremities are noted. I did utilize the Doppler to verify pulses in the extremity and they are 2+ to the dorsalis pedis and the posterior tibial pulses. Patient does have a 4 cm medial postsurgical scar that is well-approximated and is having a small amount of blood oozing from the suture site. He also has a 3 to 4 cm postsurgical scar to the lateral aspect of the right foot that is also oozing a small amount of blood I did unwrap the surgical foot to evaluate and capillary refill is less than 3 seconds in all digits. The bleeding is controlled with a small amount of direct pressure. Skin: Warm, dry, intact. Course 2 Vital Signs: Vital signs: Vital Signs Temperature 97.5 F L 05/23/23 16:38 Pulse Rate 88 05/23/23 16:38 Respiratory Rate 16 05/23/23 16:38 Blood Pressure 121/80 05/23/23 16:38 Pulse Oximetry 97 05/23/23 16:38 MDM - General Adult Medical Decision Making 48-year-old male postoperative foot surgery from Dr. Goins I did contact Dr. Goins and he is coming to the ER to evaluate the patient. I will obtain laboratory evaluation and have applied a pressure wrap to the foot to continue to control the patient's active bleeding. I will provide him IV access and IV Zofran for the patient's nausea. Differential Diagnosis Postoperative bleeding, postoperative pain. Medical Records I reviewed the patient's medical records. Lab Data I reviewed the patient's lab results. 05/23/23 16:45 05/23/23 16:45 Radiology Impressions Foot X-Ray 05/23/23 16:40 IMPRESSION: 1. Interval fusion with a fixation plate with interlocking screws at the right 1st tarsometatarsal joint. Alignment is anatomic. 2. Interval fusion of the posterior subtalar joint with 2 fixation screws. The alignment is anatomic. 3. Mild soft tissue swelling and soft tissue emphysema along the medial surface of the right hindfoot. Findings are likely postsurgical in nature. 4. Interval placement of a surgical anchor in the medial navicular bone. Laboratory Results WBC 13.05 10^3/uL (3.29-11.43) H 05/23/23 16:45 RBC 4.98 10^6/uL (3.85-5.65) 05/23/23 16:45 Hgb 15.10 g/dL (11.27-16.99) 05/23/23 16:45 Hct 44.2 % (37-53) 05/23/23 16:45 MCV 88.8 fl (82-101) 05/23/23 16:45 MCH 30.3 pg (27-33) 05/23/23 16:45 MCHC 34.2 g/dL (30-55) 05/23/23 16:45 RDW 12.6 % (12.1-15.1) 05/23/23 16:45 Plt Count 183 10^3/cmm (157-399) 05/23/23 16:45 MPV 11.4 fL (7.4-10.4) H 05/23/23 16:45 Neut % (Auto) 72.8 % 05/23/23 16:45 Lymph % (Auto) 20.2 % 05/23/23 16:45 [place] % (Auto) 5.8 % 05/23/23 16:45 Eos % (Auto) 0.2 % 05/23/23 16:45 Baso % (Auto) 0.4 % 05/23/23 16:45 Neut # (Auto) 9.49 10^3/uL (1.8-7.7) H 05/23/23 16:45 Lymph # (Auto) 2.6 10^3/uL (0.8-4.8) 05/23/23 16:45 [place] # (Auto) 0.8 10^3/uL (0.2-0.9) 05/23/23 16:45 Eos # (Auto) 0.0 10^3/uL (0.0-0.8) 05/23/23 16:45 Baso # (Auto) 0.1 10^3/uL (0.0-0.1) 05/23/23 16:45 Nucleated RBC % (auto) 0 % 05/23/23 16:45 Nucleated RBCs # 0.0 /100WBC 05/23/23 16:45 Sodium 135 mmol/L (136-145) L 05/23/23 16:45 Potassium 3.7 mmol/L (3.5-5.1) 05/23/23 16:45 Chloride 100 mmol/L (98-107) 05/23/23 16:45 Carbon Dioxide 22 mmol/L (22-29) 05/23/23 16:45 Anion Gap 16.7 (5-19) 05/23/23 16:45 BUN 18 mg/dL (6-20) 05/23/23 16:45 Creatinine 0.9 mg/dL (0.7-1.2) 05/23/23 16:45 GFR Calculation 89.3 mL/min (90-130) L 05/23/23 16:45 Glucose 164 mg/dL (65-115) H 05/23/23 16:45 POC Glucose 153 mg/dL (70-110) H 05/23/23 16:43 Calculated Osmolality 286 mOsm/kg (285-295) 05/23/23 16:45 Calcium 8.9 mg/dL (8.5-10.5) 05/23/23 16:45 Total Bilirubin 0.4 mg/dL (0.15-1.2) 05/23/23 16:45 AST 14 U/L (0-40) 05/23/23 16:45 ALT 15 U/L (0-41) 05/23/23 16:45 Alkaline Phosphatase 41 U/L (40-130) 05/23/23 16:45 Total Protein 6.8 g/dL (6.6-8.7) 05/23/23 16:45 Albumin 4.2 g/dL (3.5-5.2) 05/23/23 16:45 Globulin 2.6 g/dL (1.3-4.6) 05/23/23 16:45 All radiology interpretation(s) finalized by discharge Discharge Plan Discharge Patient Disposition: Home Clinical Impression: Postoperative bleeding from incision, S/P foot surgery, Acute postoperative pain of right foot Condition: Stable Prescriptions: No Action (DME) Articulating AFO's See Rx Instructions .Route .MEDSUPPLY Qty: 1 0RF Rx Instructions: Bilateral custom made by Juan Miguel Hernandez 0.75 mg/0.5 mL pen injector SUBCUT meloxicam 15 mg tablet 15 mg PO QPM ondansetron HCl 8 mg tablet 8 mg PO Q8H PRN (Reason: nausea and vomiting) 7 Days Qty: 21 0RF cyclobenzaprine 10 mg tablet 10 mg PO TID PRN (Reason: muscle spasm) 10 Days Qty: 30 0RF amlodipine 5 mg tablet 5 mg PO DAILY metformin 1,000 mg tablet 1,000 mg PO BID losartan 25 mg tablet 25 mg PO DAILY gabapentin 300 mg capsule See Rx Instructions .ROUTE .COMPLEX Rx Instructions: 300mg po in the morning/ 600mg po in the evening pravastatin 20 mg tablet 20 mg PO DAILY sertraline 50 mg tablet 50 mg PO BID hydrocodone-acetaminophen 7.5-325 mg tablet 1 tab PO Q4H PRN (Reason: pain) 7 Days Qty: 42 0RF Discharge Orders: Discharge ED (Routine); Ordered 05/23/23 Ordered By: Ahmet Velasco Referrals: BRETT ENCARNACION [Primary Care Provider] - Discharge Diet: Advance as tolerated Discharge Activity: Limit activity as instructed Patient Instructions: Opioid Safety, Pain Management Activity Restrictions/Additional Instructions: Activity Restrictions/Additional Instructions: Thank you for choosing [facility] for your healthcare needs today. Please realize that you were seen in the Emergency Department and that we are providing you with an emergency medical screening exam and this may not be a complete and all inclusive of all the testing and or medical work-up that you may need to determine your ailment or severity of your illness. It is very important that you follow-up as instructed with your Primary care provider or Specialist for additional evaluation and to discuss your medical treatment plan. You may return to the Emergency Department should you have concerns or if your condition changes or worsens in any way. Coding Level of Care Code ED Urology Teacher for Humberto Reid
[2023-05-23] MEDS: ondansetron 2 mg/ML SDV 2 mL 4 MG IVP (17:09)
[2023-05-23] MEDS: HYDROcodone-acetaminophen 10-325 mg Tablet 1 TAB PO (17:32)
[2023-05-23 17:45] LABS: Basophils # 0.1 10^3/uL (0.0-0.1); Basophils % 0.4 %; Eosinophils % 0.2 %; Hematocrit 44.2 % (37-53); Lymphocytes # 2.6 10^3/uL (0.8-4.8); Lymphocytes % 20.2 %; Mean Corpuscular HGB Conc 34.2 g/dL (30-55); Mean Corpuscular Hemoglobin 30.3 pg (27-33); Mean Corpuscular Volume 88.8 fl (82-101); Mean Platelet Volume 11.4 fL (7.4-10.4); Monocytes # 0.8 10^3/uL (0.2-0.9); Monocytes % 5.8 %; Neutrophils # 9.49 10^3/uL (1.8-7.7); Neutrophils % 72.8 %; Nucleated Red Blood Cells % 0 %; Platelet Count 183 10^3/cmm (157-399); Red Blood Count 4.98 10^6/uL (3.85-5.65); Red Cell Distribution Width 12.6 % (12.1-15.1); White Blood Count 13.05 10^3/uL (3.29-11.43)
--- NOTE | 2023-05-23 17:51 | P.CONIM_ITS ---
Providers/Reason For Consult 2 Consulting Physician/Specialty*: Petar Goins D.P.M. Reason for Consult*: Postoperative bleeding Primary Care Provider: BRETT ENCARNACION History of Present Illness History of Present Illness Mil Booth is a 48 year old male Medications/Allergies Home Medications Medication Instructions Recorded Confirmed Last Taken Type amlodipine 5 mg tablet 5 mg PO DAILY 12/12/19 05/22/23 05/21/23 History gabapentin 300 mg capsule See Rx Instructions .Route .COMPLEX 12/12/19 05/22/23 05/22/23 History losartan 25 mg tablet 25 mg PO DAILY 12/12/19 05/22/23 05/21/23 History metformin 1,000 mg tablet 1,000 mg PO BID 12/12/19 05/22/23 05/21/23 History pravastatin 20 mg tablet 20 mg PO DAILY 12/12/19 05/22/23 05/22/23 History sertraline 50 mg tablet 50 mg PO BID 12/12/19 05/22/23 05/22/23 History Articulating AFO's #1 ea 07/31/20 05/20/23 Unknown Rx dulaglutide 0.75 mg/0.5 mL mg SUBCUT 05/20/23 05/20/23 05/19/23 History subcutaneous pen injector (Trulicity) meloxicam 15 mg tablet 15 mg PO QPM 05/20/23 05/22/23 05/21/23 History cyclobenzaprine 10 mg tablet 10 mg PO TID PRN muscle spasm 10 05/23/23 Unknown Rx days #30 tabs hydrocodone 7.5 mg-acetaminophen 1 tab PO Q4H PRN pain 7 days #42 05/23/23 Unknown Rx 325 mg tablet tabs ondansetron HCl 8 mg tablet 8 mg PO Q8H PRN nausea and 05/23/23 Unknown Rx vomiting 7 days #21 tabs Allergies Allergy/AdvReac Type Severity Reaction Status Date / Time morphine Allergy Severe ALGY-Anaphy Verified 05/20/23 16:09 laxis PFSH Acute 2 PFSH: Social History Smoking and tobacco/nicotine status: current every day tobacco/nicotine user smokeless tobacco Vitals/I&O/Wt Last Vital Signs Temp 97.5 F L 05/23/23 16:38 Pulse 88 05/23/23 16:38 Resp 16 05/23/23 16:38 BP 121/80 05/23/23 16:38 Pulse Ox 97 05/23/23 16:38 Weight last 48 hrs Weight 238 lb Data 05/23/23 16:45 05/23/23 16:45 Coding Level of Care Code Acute Code for Chg Fwd
[2023-05-23 17:54] LABS: Alanine Aminotransferase 15 U/L (0-41); Albumin Level 4.2 g/dL (3.5-5.2); Alkaline Phosphatase 41 U/L (40-130); Anion Gap 16.7 (5-19); Aspartate Amino Transferase 14 U/L (0-40); Blood Urea Nitrogen 18 mg/dL (6-20); Calcium 8.9 mg/dL (8.5-10.5); Carbon Dioxide 22 mmol/L (22-29); Chloride 100 mmol/L (98-107); Globulin 2.6 g/dL (1.3-4.6); Glomerular Filtration Rate 89.3 mL/min (90-130); Glucose 164 mg/dL (65-115); Osmolality Calculated 286 mOsm/kg (285-295); Potassium 3.7 mmol/L (3.5-5.1); Sodium 135 mmol/L (136-145); Total Bilirubin 0.4 mg/dL (0.15-1.2); Total Protein 6.8 g/dL (6.6-8.7)
--- NOTE | 2023-05-23 18:00 | ED_ITS ---
HPI - General Adult 2 General: Chief complaint: General Medical Stated complaint: right foot pain Time Seen by Provider: 05/23/23 16:52 History of Present Illness: Patient presents with postoperative bleeding right foot, had flatfoot reconstruction this a.m. Soft strikethrough bleeding and felt nauseous and presented to the emergency department. Associated symptoms: Deny chest pain, dyspnea, nausea, rash, palpitations or vomiting Review of Systems 2 General: Reports: 10 or more systems reviewed and unremarkable except in HPI and below Const: Denies: fever(s) or chills Eyes: Denies: change in vision Card: Denies: chest pain or palpitations Resp: Denies: dyspnea or productive cough GI: Denies: abdominal pain, nausea or vomiting : Denies: flank pain Musc: Reports: extremity pain, extremity swelling and deformity Skin/Breast: Reports: surgical incision; Denies: rash Neuro: Denies: numbness in extremities, sensory changes or frequent falls Psych: Denies: suicidal ideation Scar/Lymph: Denies: easy bruising PFSH ED 2 PFSH: Social History Smoking and tobacco/nicotine status: current every day tobacco/nicotine user smokeless tobacco Physical Exam 2 Narrative: EXAM NARRATIVE: GENERAL: Patient is alert and oriented ?3 and in no acute distress. The following is a focused right lower extremity exam. VASCULAR: Dorsalis pedis and posterior tibial arteries palpable +2. Capillary refill time less than 3 seconds to the distal hallux bilaterally. Calf is supple and nontender proximally and distally. Mild edema at the operative site consistent with postoperative course. NEUROLOGICAL: Protective sensation intact to light touch. DERMATOLOGICAL: Incision site is well coapted with sutures intact mild ecchymosis no erythema no dehiscence no drainage or warmth. No active bleeding at this time. There was strikethrough bleeding at surgical dressing prior to removal. MUSCULOSKELETAL: Tenderness about the operative site consistent with postoperative course. No pain with posterior calf squeeze. Further musculoskeletal exam deferred due to postoperative state. Course 2 Vital Signs: Vital signs: Vital Signs Temperature 97.5 F L 05/23/23 16:38 Pulse Rate 88 05/23/23 16:38 Respiratory Rate 16 05/23/23 16:38 Blood Pressure 121/80 05/23/23 16:38 Pulse Oximetry 97 05/23/23 16:38 MDM - General Adult Medical Decision Making Postop bleeding Differential Diagnosis Postoperative bleeding. No active or pulsatile bleeding, strikethrough bleeding was saturating the surgical dressing, these were taken down and performed new dressing consisting of Xeroform, sterile gauze, Kerlix and a multilayer compressive posterior splint was applied to the right lower extremity. Patient discharged with vital signs stable and vascular status intact. Will follow-up outpatient in podiatry clinic as scheduled. He is to remain nonweightbearing elevate right foot while resting. Lab Data 05/23/23 16:45 05/23/23 16:45 Radiology Impressions Foot X-Ray 05/23/23 16:40 IMPRESSION: 1. Interval fusion with a fixation plate with interlocking screws at the right 1st tarsometatarsal joint. Alignment is anatomic. 2. Interval fusion of the posterior subtalar joint with 2 fixation screws. The alignment is anatomic. 3. Mild soft tissue swelling and soft tissue emphysema along the medial surface of the right hindfoot. Findings are likely postsurgical in nature. 4. Interval placement of a surgical anchor in the medial navicular bone. Laboratory Results WBC 13.05 10^3/uL (3.29-11.43) H 05/23/23 16:45 RBC 4.98 10^6/uL (3.85-5.65) 05/23/23 16:45 Hgb 15.10 g/dL (11.27-16.99) 05/23/23 16:45 Hct 44.2 % (37-53) 05/23/23 16:45 MCV 88.8 fl (82-101) 05/23/23 16:45 MCH 30.3 pg (27-33) 05/23/23 16:45 MCHC 34.2 g/dL (30-55) 05/23/23 16:45 RDW 12.6 % (12.1-15.1) 05/23/23 16:45 Plt Count 183 10^3/cmm (157-399) 05/23/23 16:45 MPV 11.4 fL (7.4-10.4) H 05/23/23 16:45 Neut % (Auto) 72.8 % 05/23/23 16:45 Lymph % (Auto) 20.2 % 05/23/23 16:45 [place] % (Auto) 5.8 % 05/23/23 16:45 Eos % (Auto) 0.2 % 05/23/23 16:45 Baso % (Auto) 0.4 % 05/23/23 16:45 Neut # (Auto) 9.49 10^3/uL (1.8-7.7) H 05/23/23 16:45 Lymph # (Auto) 2.6 10^3/uL (0.8-4.8) 05/23/23 16:45 [place] # (Auto) 0.8 10^3/uL (0.2-0.9) 05/23/23 16:45 Eos # (Auto) 0.0 10^3/uL (0.0-0.8) 05/23/23 16:45 Baso # (Auto) 0.1 10^3/uL (0.0-0.1) 05/23/23 16:45 Nucleated RBC % (auto) 0 % 05/23/23 16:45 Nucleated RBCs # 0.0 /100WBC 05/23/23 16:45 Sodium 135 mmol/L (136-145) L 05/23/23 16:45 Potassium 3.7 mmol/L (3.5-5.1) 05/23/23 16:45 Chloride 100 mmol/L (98-107) 05/23/23 16:45 Carbon Dioxide 22 mmol/L (22-29) 05/23/23 16:45 Anion Gap 16.7 (5-19) 05/23/23 16:45 BUN 18 mg/dL (6-20) 05/23/23 16:45 Creatinine 0.9 mg/dL (0.7-1.2) 05/23/23 16:45 GFR Calculation 89.3 mL/min (90-130) L 05/23/23 16:45 Glucose 164 mg/dL (65-115) H 05/23/23 16:45 POC Glucose 153 mg/dL (70-110) H 05/23/23 16:43 Calculated Osmolality 286 mOsm/kg (285-295) 05/23/23 16:45 Calcium 8.9 mg/dL (8.5-10.5) 05/23/23 16:45 Total Bilirubin 0.4 mg/dL (0.15-1.2) 05/23/23 16:45 AST 14 U/L (0-40) 05/23/23 16:45 ALT 15 U/L (0-41) 05/23/23 16:45 Alkaline Phosphatase 41 U/L (40-130) 05/23/23 16:45 Total Protein 6.8 g/dL (6.6-8.7) 05/23/23 16:45 Albumin 4.2 g/dL (3.5-5.2) 05/23/23 16:45 Globulin 2.6 g/dL (1.3-4.6) 05/23/23 16:45 All radiology interpretation(s) finalized by discharge Discharge Plan Discharge Patient Disposition: Home Clinical Impression: Postoperative bleeding from incision, S/P foot surgery, Acute postoperative pain of right foot Condition: Stable Prescriptions: No Action (DME) Articulating AFO's See Rx Instructions .Route .MEDSUPPLY Qty: 1 0RF Rx Instructions: Bilateral custom made by [employer] 0.75 mg/0.5 mL pen injector SUBCUT meloxicam 15 mg tablet 15 mg PO QPM ondansetron HCl 8 mg tablet 8 mg PO Q8H PRN (Reason: nausea and vomiting) 7 Days Qty: 21 0RF cyclobenzaprine 10 mg tablet 10 mg PO TID PRN (Reason: muscle spasm) 10 Days Qty: 30 0RF amlodipine 5 mg tablet 5 mg PO DAILY metformin 1,000 mg tablet 1,000 mg PO BID losartan 25 mg tablet 25 mg PO DAILY gabapentin 300 mg capsule See Rx Instructions .ROUTE .COMPLEX Rx Instructions: 300mg po in the morning/ 600mg po in the evening pravastatin 20 mg tablet 20 mg PO DAILY sertraline 50 mg tablet 50 mg PO BID hydrocodone-acetaminophen 7.5-325 mg tablet 1 tab PO Q4H PRN (Reason: pain) 7 Days Qty: 42 0RF Discharge Orders: Discharge ED (Routine); Ordered 05/23/23 Ordered By: Ahmet Velasco Referrals: BRETT ENCARNACION [Primary Care Provider] - Discharge Diet: Advance as tolerated Discharge Activity: Limit activity as instructed Patient Instructions: Opioid Safety, Pain Management Activity Restrictions/Additional Instructions: Activity Restrictions/Additional Instructions: Thank you for choosing [facility] for your healthcare needs today. Please realize that you were seen in the Emergency Department and that we are providing you with an emergency medical screening exam and this may not be a complete and all inclusive of all the testing and or medical work-up that you may need to determine your ailment or severity of your illness. It is very important that you follow-up as instructed with your Primary care provider or Specialist for additional evaluation and to discuss your medical treatment plan. You may return to the Emergency Department should you have concerns or if your condition changes or worsens in any way. Coding Level of Care Code ED Environmental Management Specialist for Humberto Reid
== END 2023-05-23 18:10 | disposition home or self-care (01) ==
PROVIDERS: Emergency Provider Internal Medicine; PCP Internal Medicine Cardiovascular Disease
DX: M96.830 Postprocedural hemorrhage of a musculoskeletal structure following a musculoskeletal system procedure (principal); G89.18 Other acute postprocedural pain; M79.671 Pain in right foot; Z79.85 Long-term (current) use of injectable non-insulin antidiabetic drugs; Z79.84 Long term (current) use of oral hypoglycemic drugs; F17.220 Nicotine dependence, chewing tobacco, uncomplicated
CPT/HCPCS: 36416; 73630; 80053; 82962; 85025; 96374; 99284; J2405

== ENCOUNTER → 2023-06-05 14:46 | Outpatient (BNVA) | payer OTHER, SELFPAY | PROVIDERS: PCP Internal Medicine Cardiovascular Disease; Visit Provider Podiatrist Foot & Ankle Surgery | DX: Z98.890 Other specified postprocedural states (principal) | CPT/HCPCS: 73630 ==

== ENCOUNTER 2023-06-05 16:02 | Outpatient (CLI) | payer BC, OTHER, SELFPAY | END 2023-06-05 16:03 | disposition home or self-care (01) | LOC: SPT 16:03 | PROVIDERS: PCP Internal Medicine Cardiovascular Disease; Visit Provider Podiatrist Foot & Ankle Surgery | DX: Z47.89 Encounter for other orthopedic aftercare (principal); Z98.890 Other specified postprocedural states | CPT/HCPCS: 97760; L3100; L4361 ==

== ENCOUNTER → 2023-06-19 14:41 | Outpatient (BNVA) | payer BC, OTHER, SELFPAY | PROVIDERS: PCP Internal Medicine Cardiovascular Disease; Visit Provider Podiatrist Foot & Ankle Surgery | DX: Z98.890 Other specified postprocedural states (principal) | CPT/HCPCS: 73630 ==

== ENCOUNTER → 2023-07-03 13:32 | Outpatient (BNVA) | payer BC, SELFPAY | PROVIDERS: PCP Internal Medicine Cardiovascular Disease; Visit Provider Podiatrist Foot & Ankle Surgery | DX: Z98.890 Other specified postprocedural states (principal) | CPT/HCPCS: 73630 ==

== ENCOUNTER → 2023-07-17 12:52 | Outpatient (BNVA) | payer BC, SELFPAY | PROVIDERS: PCP Internal Medicine Cardiovascular Disease; Visit Provider Podiatrist Foot & Ankle Surgery | DX: Z98.890 Other specified postprocedural states (principal); M21.41 Flat foot [pes planus] (acquired), right foot; M21.42 Flat foot [pes planus] (acquired), left foot | CPT/HCPCS: 73630 ==

== ENCOUNTER → 2023-08-14 14:39 | Outpatient (BNVA) | payer BC, SELFPAY | PROVIDERS: PCP Internal Medicine Cardiovascular Disease; Visit Provider Podiatrist Foot & Ankle Surgery | DX: Z98.890 Other specified postprocedural states (principal); M21.41 Flat foot [pes planus] (acquired), right foot; M21.42 Flat foot [pes planus] (acquired), left foot; M25.571 Pain in right ankle and joints of right foot | CPT/HCPCS: 73630 ==

== ENCOUNTER 2023-08-25 11:22 | Outpatient (CLI) | payer BC, SELFPAY | END 2023-08-25 11:23 | disposition home or self-care (01) | LOC: SPT 11:23 | PROVIDERS: PCP Internal Medicine Cardiovascular Disease; Visit Provider Podiatrist Foot & Ankle Surgery | DX: Z47.89 Encounter for other orthopedic aftercare (principal); M21.41 Flat foot [pes planus] (acquired), right foot; M21.42 Flat foot [pes planus] (acquired), left foot; Z98.890 Other specified postprocedural states | CPT/HCPCS: L3030 ==

== ENCOUNTER 2025-02-03 21:38 | Emergency (ER) | payer OTHER, SELFPAY ==
--- OUTSIDE RECORDS SUMMARY | 2025-02-03 21:47 | XMS_ITS | Encounter Summary ---
Author Organization [facility] Address [address] [place] [address] Care Team Providers Care Chargeback Analyst Name Role Phone Pa Griffin MD, Leroy Meyer Primary Care Provider Encounter Details Date Type Department Care Team (Late st Contact Info) Description 09/14/2003 [facility]patient [facility] [address] [place] [address] Shahram Torrez MD [address] [place] [address] ABNL BLOOD EXAM FINDING OTHER SPEC (Primary Dx) Social History Tobacco Use Types Packs/Day Years Used Date Smoking Tobacco: Never Assessed Sex and Gender Information Value Date Recorded Sex Assigned at Not on file 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
--- OUTSIDE RECORDS SUMMARY | 2025-02-03 21:47 | XMS_ITS | Clinical Summary ---
Author Organization [facility] Address [address] [place] [address] Care Team Providers Care Establishment Guide Name Role Phone Pa Griffin MD, Leroy Meyer Primary Care Provider Allergies No known active allergies Medications doxycycline monohydrate 100 mg Oral TabIndications: Nummular dermatitis Take 1 Tab by mouth daily before supper. Photosensitivity precautions. 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 Gender Identity Not on file Sexual Orientation Not on file Last Filed Vital Signs Vital Sign Reading Time Taken Comments Blood Pressure 162/102 06/25/2011 9:59 AM [employer]ARKING [employer] Pulse 77 06/25/2011 9:59 AM [employer]ARKING [employer]ER Temperature - - Respiratory Rate - - Oxygen Saturation - - Inhaled Oxygen Concentration - - Weight 99.8 kg (220 lb) 06/25/2011 9:59 AM [employer]ARKING [employer] Height 180.3 cm (5' 11 ) 06/25/2011 9:59 AM [employer]ARKING [employer] Body Mass Index 30.68 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
[2025-02-03 21:48] VITALS: BP 153/88; PULSE 87; RESP 16; TEMP 36.9; O2SAT 98; BMI 29.2
[2025-02-03 21:53] VITALS: BP 153/88; PULSE 87; RESP 16; TEMP 36.9; O2SAT 98
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
[2025-02-03] MEDS: tetanus-dipt-pertussis 0.5 mL SDV IM (22:45)
[2025-02-03 23:36] VITALS: BP 129/78; PULSE 67; O2SAT 96
== END 2025-02-03 23:37 | disposition home or self-care (01) ==
PROVIDERS: Emergency Provider Student in an Organized Health Care Education/Training Program
DX: S00.83XA Contusion of other part of head, initial encounter (principal); S09.8XXA Other specified injuries of head, initial encounter; Z79.85 Long-term (current) use of injectable non-insulin antidiabetic drugs; Z79.84 Long term (current) use of oral hypoglycemic drugs; F17.290 Nicotine dependence, other tobacco product, uncomplicated; Y04.2XXA Assault by strike against or bumped into by another person, initial encounter
CPT/HCPCS: 36416; 70450; 70486; 82962; 90471; 90715; 99283; J9999